=== PATIENT | female | born 1995 | race African-American/Black ===

== ENCOUNTER 2019-03-03 14:55 | Emergency (ER) | payer MEDICAID ==
[~2019-03-03] VITALS: Ht 175.3 cm; Wt 58.0 kg
[2019-03-03 17:42] LABS: CLARITY URINE CLOUDY (CLEAR); COLOR URINE DARK YELLOW (YELLOW); KETONES URINE 3+ (NEGATIVE); LEUKOCYTE ESTERASE URINE NEGATIVE (NEGATIVE); NITRITE URINE NEGATIVE (NEGATIVE); OCCULT BLOOD URINE 2+ (NEGATIVE); PROTEIN URINE 1+ (NEGATIVE); SPECIFIC GRAVITY URINE 1.027 (1.005-1.030)
[2019-03-03] MEDS ORDERED: IBUPROFEN 600MG TABLET PO STA (17:44)
[2019-03-03 17:58] VITALS: BP 114/78
== END 2019-03-03 18:51 | disposition home or self-care (01) ==
LOC: ER 14:55
DX: K52.9 Noninfective gastroenteritis and colitis, unspecified (principal); M79.18 Myalgia, other site; F12.10 Cannabis abuse, uncomplicated
CPT/HCPCS: 81025; 99283

== ENCOUNTER 2019-03-20 21:54 | Emergency (ER) | payer MEDICAID ==
[~2019-03-20] VITALS: Ht 175.3 cm; Wt 58.0 kg
[2019-03-21 00:03] VITALS: BP 138/79
== END 2019-03-21 01:00 | disposition home or self-care (01) ==
LOC: ER 21:54
DX: T74.21XA Adult sexual abuse, confirmed, initial encounter (principal); Y07.59 Other non-family member, perpetrator of maltreatment and neglect; Y92.039 Unspecified place in apartment as the place of occurrence of the external cause; R03.0 Elevated blood-pressure reading, without diagnosis of hypertension
CPT/HCPCS: 81025; 99282

== ENCOUNTER 2021-08-12 21:12 | Emergency (ER) | payer MEDICAID, MEDICARE ==
[~2021-08-12] VITALS: Ht 170.2 cm; Wt 70.0 kg
[2021-08-12] MEDS ORDERED: IBUPROFEN 600MG TABLET PO STA (22:22)
[2021-08-12] MEDS ORDERED: SODIUM CHLORIDE 0.9% 1,000 ML IV ONE (22:30)
[2021-08-12 23:52] LABS: BASOPHILS % 0.6 % (0.0-2.0); EOSINOPHILS % 1.2 % (0.0-5.0); HEMATOCRIT. 39.6 % (36.0-48.0); HEMOGLOBIN. 13.5 g/dL (12.0-16.0); LYMPHOCYTES % 44.8 % (20.0-50.0); MEAN CORPUSCULAR HEMOGLOBIN 29.3 pg (28.0-32.0); MEAN CORPUSCULAR VOLUME 85.8 fL (81.0-99.0); MEAN PLATELET VOLUME 7.5 fl (7.4-10.4); MONOCYTES % 7.6 % (2.0-8.0); NEUTROPHILS % 45.8 % (40.0-76.0); PLATELET 264 x1000/uL (130-400); RED BLOOD CELL COUNT 4.61 mill/uL (4.2-5.4)
[2021-08-12 23:57] LABS: CHLORIDE 108 mEq/L (98-107)
[2021-08-13 00:06] LABS: HCG SCREEN NEGATIVE
[2021-08-13] MEDS ORDERED: IBUP-2028 MT (00:42)
[2021-08-13 01:25] VITALS: BP 109/63
== END 2021-08-13 01:27 | disposition home or self-care (01) ==
LOC: ER 21:12
DX: R51.9 Headache, unspecified (principal); R55 Syncope and collapse; M79.641 Pain in right hand
CPT/HCPCS: 36415; 70450; 71045; 73130; 80053; 81025; 84703; 85025; 93005; 96360; 99285; J7030

== ENCOUNTER 2023-06-29 20:44 | Emergency (ER) | payer MEDICAID, OTHER ==
[~2023-06-29] VITALS: Ht 177.8 cm; Wt 59.0 kg
[~2023-06-29 20:44] MED LIST: IBUP-2028 MT
[2023-06-29 20:55] VITALS: BP 120/70; PULSE 90; RESP 18; TEMP 98.2; O2SAT 98
[2023-06-29] MEDS ORDERED: ONDANSETRON HCL 4MG TABLET PO ONE (21:00)
[2023-06-29 21:40] LABS: BASOPHILS % 0.6 % (0.0-2.0); HEMATOCRIT. 36.9 % (36.0-48.0); HEMOGLOBIN. 12.9 g/dL (12.0-16.0); LYMPHOCYTES % 42.6 % (20.0-50.0); MEAN CORPUSCULAR HEMOGLOBIN 30.5 pg (28.0-32.0); MEAN CORPUSCULAR VOLUME 87.1 fL (81.0-99.0); MEAN PLATELET VOLUME 7.1 fl (7.4-10.4); MONOCYTES % 9.9 % (2.0-8.0); NEUTROPHILS % 45.9 % (40.0-76.0); PLATELET 292 x1000/uL (130-400); RED BLOOD CELL COUNT 4.24 mill/uL (4.2-5.4); RED CELL DISTRIBUTION WIDTH 12.9 % (11.6-14.6); WHITE BLOOD COUNT 3.9 x1000/uL (4.5-11.0)
[2023-06-29 21:47] LABS: CHLORIDE 106 mEq/L (98-107); INDEX HEMOLYSI 1 (1-3); INDEX ICTERIC 1 (1-4); INDEX LIPEMIC 1 (1-3); POTASSIUM 4.3 mEq/L (3.5-5.1); SODIUM 138 mEq/L (136-145)
[2023-06-29 21:51] LABS: HCG SCREEN NEGATIVE
[2023-06-29 21:54] LABS: ALANINE AMINOTRANSFERASE 14 IU/L (13-61); ALBUMIN 3.7 g/dL (3.4-5.0); ASPARTATE AMINOTRANSFERASE 10 IU/L (15-37); BILIRUBIN TOTAL 0.3 mg/dL (0.1-1.0); CALCIUM 8.3 mg/dL (8.5-10.1); CARBON DIOXIDE 30 mEq/L (21-32); CREATININE 0.6 mg/dL (0.6-1.3); GLUCOSE 92 mg/dL (70-105); PROTEIN TOTAL 7.2 g/dL (6.0-8.3); UREA NITROGEN BLOOD 6 mg/dL (7-21)
== END 2023-06-29 22:54 | disposition home or self-care (01) ==
LOC: ER 20:44
DX: R11.0 Nausea (principal)
CPT/HCPCS: 99283; 80053; 84703; 85025; 36415; Q0162